=== PATIENT | male | born 1950 | race Caucasian/White ===

== ENCOUNTER 2018-04-15 07:52 | Outpatient (CLI) | payer MEDICARE, BC ==
[~2018-04-15] VITALS: Ht 182.9 cm; Wt 136.4 kg
--- NOTE | ~2018-04-15 | HEMODYNAMI ---
PATIENT:JEAN AYALA MEDICAL RECORD: [id number] : 54 LOCATION:[facility] ADMISSION DATE: 04/15/18 Generatedon:04/15/201810:32 Patient name: JEAN AYALA Patient #: [id number] SSN: [id number] : 1950 Date of study: 04/15/2018 Page: Of Hemodynamic Procedure Report Patient Data Patient Demographics Procedure consent was obtained First Name: JEAN Gender: Male Last Name: JAMIE : 1950 Middle Initial: KORIN Age: 67 year(s) Patient #: [id number] Race: SSN: [id number] Additional ID: [id number] Contact details Address: [place] [address] State: [place] City: [place] Zip code: [address] Past Medical History History of disease Date Diagnosis Comments CAD Allergies Allergen Reaction Date Comments Reported Other allergy 10/25/2015 PREDNISONE Admission Admission Data Admission Date: 04/15/2018 Admission Time: 7:52 Procedure Procedure Types Cath Procedure Diagnostic Procedure LHC LHC w/Coronaries FFR/IVUS Intra-Coronary IVUS Initial Sedation Charges Moderate Sedation up to 15 minutes PCI Procedure Coronary Stent Coronary Stent Initial Procedure Description Procedure Date Procedure Date: 04/15/2018 Procedure Start Time: 10:10 Procedure End Time: 10:29 Procedure Staff Name Function German Granger MD Performing Physician Dede Branch RT Monitor Naseem Davenport RT Scrub Michel Bautista RN Nurse Procedure Data Cath Procedure Fluoroscopy Diagnostic fluoroscopy Total fluoroscopy Time: 5.3 time: 5.3 min min Diagnostic fluoroscopy Total fluoroscopy dose: dose: 1530 mGy 1530 mGy Contrast Material Contrast Material Type Amount (ml) Isovue 300 90 Entry Location Entry Primary Successful Side Size Upsize Upsize Entry Closure Lakhani ccessful Closure Location (Fr) 1 (Fr) 2 (Fr) Remarks Device Remarks Radial Right 6 Fr Mechanical artery Short Compression Estimated blood loss: 5 ml Diagnostic catheters Device Type Used For End Catheter Placement DIAGNOSTIC Elwell 110cm 5 Multi-vessel Fr catheter ([id number]) Angiography Procedure Complications No complications Procedure Medications Medication Administration Route Dosage Oxygen etCO2 Nasal cannula 2 l/min Heparin Flush Bag added to field 2 bags (1000units/500ml NS) 0.9% NaCl I.V. 100 ml/hr Radial Cocktail added to field 1 syringe (Verapomil 2mg/Nitro 400mcg/Heparin 1500units) Fentanyl I.V. 50 mcg Versed I.V. 1 mg Radial Cocktail added to field 1 syringe (Verapomil 2mg/Nitro 400mcg/Heparin 1500units) Fentanyl I.V. 50 mcg Versed I.V. 1 mg Heparin Bolus I.V. 4000 units Hemodynamics Rest Heart Rate: 51 (bpm) Pressure Samples Time Site Value (mmHg) Purpose Heart Use Rate(bpm) 10:14 LV 30/27,20 Snapshot 58 Snapshots Pre Cath Intra NCS Post Cath Vital Signs Time Heart Resp SPO2 etCO2 NIBP (mmHg) Rhythm Pain Sedation Rate (ipm) (%) (mmHg) Status Level (bpm) 10:00:54 52 17 93 0 141/76(115) NSR 0 (11) 10(A) , No pain 10:05:13 49 17 95 37.6 140/78(112) NSR 0 (11) 10(A) , No pain 10:09:33 50 18 94 16.5 139/80(107) NSR 0 (11) 10(A) , No pain 10:13:55 59 16 96 24.8 118/68(95) NSR 0 (11) 9(A) , No pain 10:18:07 50 17 96 39.8 120/74(95) NSR 0 (11) 9(A) , No pain 10:23:10 44 16 94 37.6 125/69(101) NSR 0 (11) 9(A) , No pain 10:28:09 48 17 94 38.3 125/69(88) NSR 0 (11) 9(A) , No pain 10:31:23 45 9 95 39.1 124/71(103) NSR 0 (11) 9(A) , No pain Medications Time Medication Route Dose Verified Delivered Reason Not es Effectiveness by by 10:07:17 Oxygen etCO2 2 l/min German Pearson Per physician Nasal Elkin Bautista RN cannula 10:07:25 Heparin Flush added 2 bags German Michel used for Bag to Elkin Bautista RN procedure (1000units/500ml field NS) 10:07:34 0.9% NaCl I.V. 100 German Michel Per physician ml/hr Elkin Bautista RN 10:07:41 Radial Cocktail added 1 German Michel used for (Verapomil to syringe Elkin Bautista RN procedure 2mg/Nitro field 400mcg/Heparin 1500units) 10:09:16 Fentanyl I.V. 50 mcg German Ferreiray for sedation Elkin Bautista RN 10:09:22 Versed I.V. 1 mg German Michel for sedation Elkin Bautista RN 10:12:52 Radial Cocktail added 1 German Michel used for (Verapomil to syringe Elkin Bautista RN procedure 2mg/Nitro field 400mcg/Heparin 1500units) 10:12:57 Fentanyl I.V. 50 mcg German Pearson for sedation Elkin Bautista RN 10:13:01 Versed I.V. 1 mg German Ferreiray for sedation Elkin Bautista RN 10:24:29 Heparin Bolus I.V. 4000 German Michel for units Elkin Bautista RN anticoagulation Procedure Log Time Note 9:44:34 Diagnostic Cath Status : Elective 9:45:23 Naseem Davenport RT(R) sent for patient. Start room use. 9:45:24 Time tracking: Regular hours (M-F 7:00 - 5:00) 9:45:28 Plan of Care:Hemodynamics will remain stable., Cardiac rhythm will remain stable., Comfort level will be maintained., Respiratory function will remain adequate., Patient/ family verbilizes understanding of procedure., Procedure tolerated without complication., Recovers from procedure without complications.. 9:59:38 Patient received from Pre/Post Procedure Room to CCL 2 Alert and oriented. Tansferred to table in Supine position. 9:59:39 Warm blankets applied, and joleen hugger turned on for patient comfort. 9:59:40 Correct patient and procedure confirmed by team. 9:59:41 Signed procedure consent form obtained from patient. 9:59:42 ECG and BP/O2 sat monitors applied to patient. 9:59:44 Vital chart was started 9:59:45 Baseline sample Acquired. 9:59:47 Rhythm: sinus rhythm 9:59:49 Full Disclosure recording started 9:59:52 H&P Date Dictated: 04/15/2018 Within 30 days and on chart., H&P Addendum completed by physician on day of procedure. (MUST COMPLETE FOR ALL OUTPATIENTS). 9:59:54 Pre-procedure instructions explained to patient. 9:59:54 Pre-op teaching completed and patient verbalized understanding. 9:59:55 Family in waiting room. 9:59:56 Patient NPO since Midnight. 10:00:54 Is the patient allergic to Iodine/contrast media? No. 10:00:55 Was the patient premedicated? No 10:00:56 Is patient on blood thinner?Yes 10:00:58 ACC The patient was administered the following blood thiners within the last 24 hours: ACCPlavix 10:01:00 Patient diabetic? Yes. 10:01:01 If diabetic: On Metformin? Yes 10:01:05 If on Metformin: Last Dose? 04/13/2018 10:01:09 Previous problem with sedation/anesthesia? No ? 10:01:10 Snore? Yes 10:01:11 Sleep apnea? No 10:01:12 Deviated septum? No 10:01:13 Opens mouth fully? Yes 10:01:13 Sticks out tongue? Yes 10:01:15 Airway obstruction? No ? 10:01:17 Dentures? No ? 10:01:20 Pre procedure: right dorsailis pedis pulse 2+ Normal; easily identifiable; not easily obliterated 10:01:23 Pre procedure: left dorsailis pedis pulse 2+ Normal; easily identifiable; not easily obliterated 10:01:25 Patient pain scale 0/10 ?. 10:01:30 IV patent on arrival in left forearm with 0.9% NaCl at [facility]. 10:01:32 Lab results completed and on chart. 10:01:36 Right Radial & Right Groin area was prepped with chlora-prep and draped in sterile fashion 10:01:36 Alarms reviewed by R. N. 10:01:37 Sharps counted by scrub and verified by R.N. 10:01:39 Physician arrived 10:01:39 --------ALL STOP TIME OUT------ 10:01:39 Final Timeout: patient, procedure, and site verified with staff and physician. All members of the team are in agreement. 10:01:41 Right Radial & Right Groin site verified by team. 10:01:44 Physical assessment completed. ASA score P 2 - A patient with mild systemic disease as per German Granger MD. 10:01:47 Sedation plan: IV Moderate Sedation Medication:Versed, Fentanyl 10:01:50 Use device set Radial Dx or PCI 10:01:51 ACIST Syringe (27499) opened to sterile field. 10:01:51 Medline Cath Pack ([id number]) opened to sterile field. 10:01:52 Bag Decanter (2002S) opened to sterile field. 10:01:52 DIAGNOSTIC WIRE .035 260cm J wire (934986) opened to sterile field. 10:01:52 ACIST Hand Control (20893) opened to sterile field. 10:01:53 ACIST Manifold (42678) opened to sterile field. 10:01:53 Tegaderm 4 x 4 (1626W) opened to sterile field. 10:01:54 MBrace Wrist Support ([id number]) opened to sterile field. 10:01:55 SHEATH 6Fr Prelude Radial ([id number]) opened to sterile field. 10:07:17 Oxygen 2 l/min etCO2 Nasal cannula was administered by Michel Bautista RN; Per physician; 10:07:25 Heparin Flush Bag (1000units/500ml NS) 2 bags added to field was administered by Michel Bautista RN; used for procedure; 10:07:26 Zero performed for pressure channel P1 10:07:34 0.9% NaCl 100 ml/hr I.V. was administered by Michel Bautista RN; Per physician; 10:07:41 Radial Cocktail (Verapomil 2mg/Nitro 400mcg/Heparin 1500units) 1 syringe added to field was administered by Michel Bautista RN; used for procedure; 10:09:16 Fentanyl 50 mcg I.V. was administered by Michel Bautista RN; for sedation; 10:09:22 Versed 1 mg I.V. was administered by Michel Bautista RN; for sedation; 10:10:42 Procedure started. 10:10:51 Local anesthetic to right radial artery with Lidocaine 2% by German Granger MD.INITIAL ACCESS ONLY 10:10:59 A 6 Fr Short sheath was inserted into the Right Radial artery 10:12:05 A DIAGNOSTIC Elwell 110cm 5 Fr catheter (288207) was advanced over the wire and used for Multi-vessel Angiography. 10:12:52 Radial Cocktail (Verapomil 2mg/Nitro 400mcg/Heparin 1500units) 1 syringe added to field was administered by Michel Bautista RN; used for procedure; 10:12:57 Fentanyl 50 mcg I.V. was administered by Michel Bautista RN; for sedation; 10:13:01 Versed 1 mg I.V. was administered by Michel Bautista RN; for sedation; 10:14:24 LV hemodynamics recorded. 10:14:25 LV gram done using RAMIREZ 10:14:27 Injector settings: Ml/sec: 5, Volume: 15, 10:14:33 EF : 55 % 10:14:51 LCA angiography performed. 10:14:54 Injector settings: Ml/sec: 3, Volume: 6, 10:15:53 RCA angiography performed. 10:15:56 Injector settings: Ml/sec: 3, Volume: 6, 10:16:36 Catheter removed. 10:16:37 Proceeding to intervention. 10:17:05 CHOICE PT Extra Support 182cm wire ([id number]) opened to sterile field. 10:17:05 INFLATOR Merit BasixCompak (MW2433) opened to sterile field. 10:17:37 [employer] [place] Eagleye IVUS Catheter (89557T) opened to sterile field. 10:18:08 GUIDE 6FR EBU 3.5 catheter (AQ0FSO49) opened to sterile field. 10:18:31 6 Fr ebu 3.5 guide catheter was inserted over the wire 10:18:35 choice pt wire advanced. 10:18:36 Wire advanced across lesion. 10:18:42 IVUS catheter advanced over wire. 10:21:50 IVUS pass to LAD lesion performed. 10:21:51 IVUS catheter removed over wire. 10:24:10 Wire removed. 10:24:20 CHOICE PT Extra Support J 300cm guide wire (8877540G5) opened to sterile field. 10:24:29 Heparin Bolus 4000 units I.V. was administered by Michel Bautista RN; for anticoagulation; 10::44 choice pt wire advanced. 10:24:45 Wire advanced across lesion. 10:25:10 Place stent Inflation Number: 1 A MARGOTH OTW 2.5 x 22 stent ([id number]) was prepped and advanced across the Mid LAD. The stent was deployed at 21 IVANIA for 0:10 (min:sec). 10:25:26 Inflation number: 2 The stent balloon was then re-inflated across the Mid LAD to 21 IVANIA for 0:10 (min:sec). 10:25:41 Inflation number: 3 The stent balloon was then re-inflated across the Mid LAD to 21 IVANIA for 0:10 (min:sec). 10:26:20 Stent catheter was removed intact over wire. 10::21 Wire removed. 10:26:22 Guide catheter removed. 10:26:27 TR BAND Large (EOS31REH) opened to sterile field. 10:27:24 Sheath removed intact; hemostasis achieved with Mechanical Compression to the Right Radial artery. 10:27:25 Procedure ended.(Physican Out) 10:28:01 Fluoroscopy time 05.30 minutes. 10:28:05 Flurop Dose total: 1530 10:28:05 Fluoroscopy dose: 1530 mGy 10:28:13 Contrast amount:Isovue 300 90ml. 10:28:14 Sharps counted by scrub and verified by R.N. 10:28:16 TR band inflated with 9cc of air. 10:28:18 Insertion/operative site no bleeding no hematoma. 10:28:21 Post right radial artery:stable 10:28:23 Post Procedure Pulses reassessed and unchanged 10:28:26 Post procedure rhythm: unchanged. 10:28:28 Estimated blood loss: 5 ml 10:28:30 Post procedure instruction explained to patient.Patient verbalizes understanding. 10:28:31 Patient needs reinforcement of post procedure teaching. 10:28:58 Procedure type changed to Cath procedure, Diagnostic procedure, LHC, LHC w/Coronaries, FFR/IVUS, Intra-Coronary IVUS Initial, Sedation Charges, Moderate Sedation up to 15 minutes, PCI procedure, Coronary Stent, Coronary Stent Initial 10:29:10 Procedure and supply charges have been captured, reviewed, submitted and are correct. 10:29:14 Procedure Complication : No complications 10:29:17 Vital chart was stopped 10:: See physician's report for complete and final results. 10::19 Report given to Pre/Post Procedure Room. 10:: Patient transfered to Pre/Post Procedure Room with Stretcher. 10::24 Procedure ended. :: Full Disclosure recording stopped 10::31 ACC-PCI Only Patient was given prescriptions, or instructed by German Granger MD to start/continue the following medications upon discharge: Plavix 10::33 End room use (Document Last) Intervention Summary Intervention Notes Time ActionType Lesion and Equipment Action# Pressure Duration Attributes Used 10:25:10 Place stent Mid LAD MARGOTH OTW 2.5 1 21 00:10 x 22 stent ([id number]) 10:25:26 Reinflate Mid LAD MARGOTH OTW 2.5 2 21 00:10 stent x 22 stent balloon ([id number]) 10:25:41 Reinflate Mid LAD MARGOTH OTW 2.5 3 21 00:10 stent x 22 stent balloon ([id number]) Device Usage Item Name Manufacture Quantity Catalog Number Hospital Part Current M inimal Lot# / Charge Number Stock Stock Serial# Code ACIST Syringe Acist 1 06472 564462 402759 899284 2 0 (80570) Medical Systems Inc Medline Cath Cardinal 1 [id number] 148095 03391 521599 5 [facility] ([id number]) Bag Decanter Microtek 1 2001S 938980 78966 033070 5 (2001S) Medical Inc. DIAGNOSTIC WIRE St Wes 1 898791 140779 733315 226236 3 0 .035 260cm J wire (036174) ACIST Hand Acist 1 88999 149059 799983 210401 5 Control (15790) [employer] Inc ACIST Manifold Acist 1 00071 811530 587435 593074 5 (28862) [employer] Systems Inc Tegaderm 4 x 4 3M 1 1626W 839598 597314 489166 5 (1626W) MBrace Wrist Advanced 1 140-0250-00 097121 13625 004896 5 Support Vascular ([id number]) Dynamics SHEATH 6Fr Merit 1 [id number] 369219 221844 337810 5 Prelude Radial Medical ([id number]) DIAGNOSTIC Terumo 1 40-8713 350154 242717 549117 5 [place] 110cm 5 Fr catheter (287382) CHOICE PT Extra Fenwick 1 [id number] 978012 637315 234153 5 Support 182cm Scientific wire (2612745H3) INFLATOR Merit Merit 1 UK4423 253341 869220 785892 1 5 [facility] (ED1814) [employer] 1 51436V 092642 736466 169256 8 [place] Eagleye IVUS Catheter (82776T) GUIDE 6FR EBU Medtronic 1 [id number] 464848 42238 717198 3 3.5 catheter ([id number]) CHOICE PT Extra Fenwick 1 [id number] 417414 474897 874156 5 Support J 300cm Scientific guide wire ([id number]) MARGOTH OTW 2.5 x Medtronic 1 [id number] 619394 74394 464128 5 [id number] 22 stent ([id number]) TR BAND Large Terumo 1 [id number] 260113 123806 778261 4 0 ([id number]) Signature Audit [place] Stage Time Signature Unsigned Intra-Procedure 04/15/2018 Dede Branch 10:32:43 AM RT(R) Signatures Monitor : Dede Branch RT Signature : Date : Time : [facility] [address] [place] [address]
--- NOTE | ~2018-04-15 | OP ---
PATIENT NAME: JEAN AYALA MEDICAL RECORD: [id number] :54 LOCATION:D[facility] ADMISSION DATE: SURGEON: NAI FULTON MD DATE OF OPERATION: 04/15/2018 PROCEDURES: 1. PTCA stent LAD. 2. Left heart catheterization. 3. Selective coronary angiography. 4. Left ventriculogram. 5. Intravascular ultrasound. INDICATION: Angina and coronary artery disease. PROCEDURE IN DETAIL: After informed consent was obtained and after detailed description of risks, benefits as well as alternative therapies, the patient elected to proceed with angiogram and angioplasty. The right radial area was prepped and draped in normal sterile fashion. Right radial artery was cannulated via modified Seldinger technique with placement of 6-Mexican sheath. All catheters exchanged through this sheath. FINDINGS: The left ventriculogram was performed in standard 30-degree RAMIREZ view, reveals good cardiac wall motion throughout all segments. Overall ejection fraction estimated 60%. SELECTIVE CORONARY ANGIOGRAPHY: 1. Left main is with no significant angiographic disease. 2. Left anterior descending has a previously placed stent with 76% in-stent restenosis confirmed by intravascular ultrasound. 3. Left circumflex has moderate irregularities, but no flow-limiting stenosis. 4. Right coronary artery has moderate irregularities, but no flow-limiting stenosis. SEPTIC TANK SERVICE TECHNICIAN STENT OF THE LAD: The stent used was a 2.5 x 22 mm [place] taken to 21 atmospheres. Result was 0% residual stenosis. OVERALL IMPRESSION: Successful percutaneous transluminal coronary angioplasty stent of the left anterior descending going from 76% initial stenosis confirmed by intravascular ultrasound to 0% residual. TRANSINT:[id number] Voice Confirmation ID: [id number] DOCUMENT ID: [id number] NAI FULTON MD at 1752 CC: [id number] DICTATION DATE: 04/15/18 1033 STAMP PAD MAKER: 04/15/18 1241 DEP CLI 04/15/18 [place] [id number] [place] [id number]
[~2018-04-15 07:52] MED LIST: BABY ASPIRIN81 MG PO; CARDIZEM CD180 MG PO; CATAPRES0.2 MG PO; EFFIENT10 MG PO; GLIPIZIDE10 MG; GLUCOPHAGE1000 MG PO; HYDROCHLOROTHIA25 MG PO; LANTUS INSULIN10 ML SC; LASIX40 MG OR; NAPROSYN500 MG PO; PLAVIX75 MG PO; PRAVACHOL20 MG PO; ZIAC 10/6.25 MG1 TAB
[2018-04-15 08:18] VITALS: BP 123/77; Ht 182.9 cm; Wt 136.4 kg
[2018-04-15 08:38] LABS: BASOPHILS 0.9 % (0-2); EOSINOPHILS 3.1 % (0-7); HEMATOCRIT 40.5 % (42.0-54.0); HEMOGLOBIN 13.7 g/dL (13.5-17.5); LYMPHOCYTES 26.4 % (15-50); MCH 29.6 pg (26.0-34.0); MCHC 33.8 g/dL (31.0-37.0); MCV 87.5 fL (80.0-100.0); MEAN PLATELET VOLUME 10.7 fL (7.4-10.4); MONOCYTES 8.7 % (2-11); NEUTROPHILS 60.9 % (40-80); PLATELET COUNT 177 10x3/uL (130-400); RBC 4.63 10x6/uL (4.20-6.10); RDW 12.6 % (11.5-14.5); WBC 5.9 10x3/uL (4.8-10.8)
[2018-04-15 08:47] LABS: CALC OSMOLALITY 288 mosm/kg (275-300); CALCIUM 8.1 mg/dL (8.5-10.1); CARBON DIOXIDE 30.2 mmol/L (21.0-32.0); CHLORIDE - SERUM 102 mmol/L (98-107); GLUCOSE 255 mg/dL (74-106); POTASSIUM - SERUM 4.4 mmol/L (3.5-5.1); SODIUM 140 mmol/L (136-145); UREA NITROGEN 16 mg/dL (7-18); eGFR NON AFRICAN AMERICAN 80 mL/min (90-120)
== END 2018-04-15 14:56 ==
LOC: D.CATH 07:52
PROVIDERS: Internal Medicine Interventional Cardiology
DX: I25.119 Atherosclerotic heart disease of native coronary artery with unspecified angina pectoris (principal); T82.855A Stenosis of coronary artery stent, initial encounter; Z01.812 Encounter for preprocedural laboratory examination
CPT/HCPCS: 92978; 93458; C9600

== ENCOUNTER → 2018-08-01 16:34 | Outpatient (CLI) | payer MEDICARE, BC ==
[2018-04-15 08:18] VITALS: BMI 40.8
== END | disposition home or self-care (01) ==
LOC: D.CT 16:30
DX: R91.8 Other nonspecific abnormal finding of lung field (principal)

== ENCOUNTER → 2018-11-13 12:54 | Outpatient (CLI) | payer MEDICARE, BC ==
[2018-04-15 08:18] VITALS: BMI 40.8
--- NOTE | 2018-11-15 14:58 | EC ---
PATIENT:JEAN AYALA DATE OF SERVICE: 11/13/18 SEX: M MEDICAL RECORD: [id number] DATE OF : 54 [facility] AGE OF PATIENT: 68 ADMISSION DATE: 11/13/18 REFERRING PHYSICIAN: INTERPRETING PHYSICIAN: NAI GRANGER MD ECHOCARDIOGRAM REPORT ECHO CHARGES 4 ECHO COMPLETE Date: 11/13/18 CLINICAL DIAGNOSIS: HTN/EDEMA/MR H/O CAD ECHOCARDIOGRAPHIC MEASUREMENTS (adult normal given) AC root (d.<3.7cm) 4.0 cm LV Septum d (<1.2 cm> 1.4 cm Valve Excursion 2.2 cm LV Septum (systole) 1.8 cm Left Atria (s.<4.0cm> 5.4 cm LVPW d(<1.2cm) 1.3 cm RV (d.<2.3cm) 2.9 cm LVPW (sytole) 2.1 cm LV diastole(<5.6CM) 6.0 cm MV E-F(>70mm/sec) cm LV systole 4.0 cm LVOT Diameter 2.3 cm MV exc.(>10mm) cm Est.ejection fraction (50-75%) % DOPPLER: LVIT cm/sec A 57.0 cm/sec E 90.0 cm/sec LA cm/sec RVSP 17.0 mmHg LVOT 138 cm/sec AOP1/2T m/s Asc. Ao 126 cm/sec RVOT 70.0 cm/sec RA cm/sec PA 98.0 cm/sec AV Gradient Peak 6.4 mmHg AV Mean 3.3 mmHg AV Area 4.9 cm MV Gradient Peak 4.6 mmHg MV Mean 1.6 mmHg MV Area cm COMMENTS: OP - HC Block Cuber: Liss NOLASCO TU[place] Equipment Operator: 1 Dr. Granger TAPE# PACS Pericardial Effusion N DATE OF SERVICE: 11/13/2018 FINDINGS: 1. Left ventricular chamber size is mildly dilated. Left ventricular systolic function is preserved. Overall ejection fraction estimated at 60%. 2. Left atrium is enlarged at 5.4 cm. Right atrium and right ventricular chamber sizes are within normal limits. 3. Valvular structures have normal structure and function. 4. Doppler interrogation reveals no significant valvular insufficiency or stenosis. Pulmonary systolic pressure is normal, estimated at 17 mmHg. ECHOCARDIOGRAM REPORT [id number] JEAN AYALA 5. No evidence of pericardial effusion or left ventricular thrombus. TRANSINT:[id number] Voice Confirmation ID: [id number] DOCUMENT ID: [id number] NAI GRANGER MD at 1458 CC: [id number] DICTATION DATE: 11/15/18 0909 CARE MANAGER: 11/15/18 1001 DEP CLI 11/13/18 [place] [id number] [place] [address]
== END | disposition home or self-care (01) ==
LOC: D.HCCARDIO 12:54
PROVIDERS: ATTEND Internal Medicine Interventional Cardiology
DX: I34.0 Nonrheumatic mitral (valve) insufficiency (principal)

== ENCOUNTER 2019-01-03 05:05 | Day surgery (SDC) | payer MEDICARE, BC ==
[2019-01-02 11:45] LABS: HEMATOCRIT 41.4 % (42.0-54.0); HEMOGLOBIN 14.1 g/dL (13.5-17.5); MCH 29.3 pg (26.0-34.0); MCHC 34.1 g/dL (31.0-37.0); MCV 86.1 fL (80.0-100.0); MEAN PLATELET VOLUME 10.2 fL (7.4-10.4); RBC 4.81 10x6/uL (4.20-6.10); RDW 12.3 % (11.5-14.5); WBC 7.6 10x3/uL (4.8-10.8)
[2019-01-02 11:51] LABS: CALCIUM 9.1 mg/dL (8.5-10.1); CARBON DIOXIDE 26.3 mmol/L (21.0-32.0); CREATININE - SERUM 1.1 mg/dL (0.6-1.3); POTASSIUM - SERUM 4.3 mmol/L (3.5-5.1)
[~2019-01-03] VITALS: Ht 182.9 cm; Wt 136.1 kg
[~2019-01-03 05:05] MED LIST changes: +CARDURA4 MG PO
[2019-01-03] MEDS ORDERED: LISINOPRIL20 MG (06:05)
[2019-01-03 06:13] VITALS: BP 140/65; Ht 182.9 cm; Wt 136.1 kg
--- NOTE | 2019-01-03 07:31 | NUR ---
PREPPED ARM FROM SHUOLDER TO FINGERS CIRCUMFERENTIALLY PATIENT HAS MULTIPLE PLACES OF PSORIASIS THROUGHOUT BODY
[2019-01-03] MEDS ORDERED: PERCOCET 7.5/321 TAB PO (08:13)
--- NOTE | 2019-01-03 11:26 | OP ---
PATIENT NAME: JEAN AYALA MEDICAL RECORD: [id number] :54 LOCATION:[facility] ADMISSION DATE: SURGEON: BELLO ANDREA DO DATE OF OPERATION: 01/03/2019 PROCEDURE PERFORMED: Left shoulder arthroscopy with subacromial decompression, distal clavicle excision, labral debridement, biceps tenodesis. PREOPERATIVE DIAGNOSES: Left shoulder superior labrum anterior and posterior tear, subacromial impingement and acromioclavicular joint arthritis. POSTOPERATIVE DIAGNOSES: Left shoulder superior labrum anterior and posterior tear, subacromial impingement and acromioclavicular joint arthritis. INDICATIONS: Mr. Ayala is a 68-year-old diabetic male who has had left shoulder pain for quite some time. He has been tired dealing with it. He has had pain with overhead lifting and reaching backwards. He tried all manner of nonoperative treatment and had an MRI, which showed AC joint arthritis, possible SLAP tear and possible partial rotator cuff tear. The patient was informed that we would go in there and clean up the impingement part of the distal clavicle, excision for his AC joint arthritis and look at his rotator cuff directly. If it was torn more than 50%, I told him I would fix it and I would also do biceps tenodesis if there was a SLAP tear. He was okay with that as were the risks of infection, bleeding, damage to nerves and vessels, need for further surgery, blood clots, and even and he was worried with his increased risk for infection due to his diabetes and that he would have to control his sugars well and physical therapy; risk for adhesive capsulitis was increased due to his diabetes as well and he would have to do physical therapy right away. He is okay with that and signed the consent. SURGEON: Bello Andrea DO DESCRIPTION OF PROCEDURE: The patient was taken to the operative suite. After given a block by anesthesia, laid in the right lateral decubitus position with the left shoulder up. The axillary roll was placed and the patient was positioned with the beanbag and secured. The left shoulder was then prepped and draped in sterile fashion. Timeout was performed. Everyone was in agreeance with the correct side, site, patient and procedure. He was given 900 mg of clindamycin preoperatively. The left shoulder was ready and then the 18-gauge spinal needle was used to the posterior portal to inflate the shoulder joint itself with 60 mL of normal saline. Once this was inflated, an 11-blade scalpel was used to establish the portal. The trocar was then entered into the shoulder joint. The camera was then entered and the SLAP tear was seen right away with fraying of the labrum at the superior portion of it. The anterior portal was then established with an 18-gauge spinal needle and 11-blade scalpel with trocar to make the portal bigger and then a burner was brought in through the anterior portal. The biceps was then tenotomized. The rest of the shoulder was inspected. The cartilage on the humerus looked good. There was a small defect in the glenoid, right at the center. The supraspinatus and infraspinatus did not appear to have any full-thickness tears and the subscapularis was in good condition as well on the anterior humerus. Inferior gutter of the shoulder joint was inspected as well. No loose bodies are seen in it. The shoulder scope was then removed and put into the subacromial space. There was a significant amount of bursa there. The lateral portal was then established with an 18-guage spinal needle and 11-blade scalpel and trocar. A burner was then OPERATIVE REPORT [id number] JEAN AYALA brought in and the acromion was cleaned off and a shaver was brought in to do the bursectomy. The rotator cuff was inspected. No tears were seen on the bursal side of the rotator cuff either. Then, the subacromial decompression was done. The distal lateral acromion was removed and smoothed out. Then, the AC joint was opened up and the distal clavicle was removed opening the AC joint up to 7-mm. Once that was performed, the rotator cuff was further inspected and more bursa was taken out with a shaver and no tears again were seen in the rotator cuff. Scope was then removed from the shoulder and attention was drawn to the anterior humerus where the biceps tenodesis would be performed. A small incision was made on the anterior humerus. Dissection was made down to the long head of the biceps tendon. This was removed from the wound and whipstitched and then a single button unicortical was placed on the anterior humerus and the biceps tendon was cinched down to it and tied, and then a free needle was used to go through the tendon and this tied down as well, doubly securing it to the anterior humerus. The excess tendon and sutures were cut at that time. The site was thoroughly irrigated and then closed with 2-0 Vicryl in an inverted interrupted fashion, 4-0 Monocryl ran on the skin. The portal sites were then closed with 4-0 Monocryl in an inverted interrupted fashion and Dermabond glue was placed on all the incisions. The patient was dressed in a regular fashion and placed in a sling, awakened and taken to recovery in stable condition. BLOOD LOSS: Minimal. COMPLICATIONS: None. TRANSINT:[id number] Voice Confirmation ID: [id number] DOCUMENT ID: [id number] BELLO ANDREA DO at 1126 CC: CHARISMA ZELAYA [id number] DICTATION DATE: 01/03/19 0821 YOGA TEACHER: 01/03/19 1107 [facility] [place] [place] 01/03/19 [address] [place] [address]
== END 2019-01-03 10:35 | disposition home or self-care (01) ==
LOC: D.OPS 05:05 → D.PAN 08:20 → D.OPS 08:20 → D.PAN 08:30 → D.OPS 08:30
PROVIDERS: Anesthesiology; ATTEND Orthopaedic Surgery
DX: S43.432A Superior glenoid labrum lesion of left shoulder, initial encounter (principal); M75.42 Impingement syndrome of left shoulder; M13.812 Other specified arthritis, left shoulder; Z01.812 Encounter for preprocedural laboratory examination; X58.XXXA Exposure to other specified factors, initial encounter

== ENCOUNTER → 2019-11-06 08:57 | Outpatient (CLI) | payer MEDICARE, BC ==
[2019-01-03 06:13] VITALS: BMI 40.8
--- NOTE | ~2019-11-06 | ST ---
PATIENT:JEAN AYALA MEDICAL RECORD: [id number] SEX: M LOCATION:[facility] ORDER #: ADMISSION DATE: 11/06/19 AGE OF PATIENT: 69 REFERRING PHYSICIAN: INTERPRETING PHYSICIAN: NAI FULTON MD DATE OF SERVICE: 11/06/2019 PROCEDURE: Nuclear stress test. INDICATION: Angina, shortness of breath, hypertension and hyperlipidemia. TECHNIQUE: He was exercised on standard Lexiscan protocol with 33 mCi of sestamibi injected at peak stress, 11 mCi used previously for rest images. FINDINGS: Gated SPECT reveals a dilated cardiomyopathy, ejection fraction of 44%. SPECT imaging Cardiolite was used as myocardial perfusion agent. There is reversibility inferiorly. This includes basal, mid, apical, inferior segments. The degree of reversibility is severe. The amount of myocardium involved is moderate. There is reversibility laterally. The degree of reversibility is moderate. The amount of myocardium involved is moderate. There is reversibility anteriorly. The degree of reversibility is [id number]. The amount of myocardium involved is moderate. Between all defects, the amount of myocardium involved is very large. OVERALL IMPRESSION: This is a high risk significantly abnormal nuclear stress test, reversibility laterally, inferiorly, anteriorly and apically suggestive of hemodynamically significant multivessel coronary artery disease. TRANSINT:[id number] Voice Confirmation ID: [id number] DOCUMENT ID: [id number] NAI FULTON MD CC: CHARISMA ZELAYA [id number] DICTATION DATE: 11/07/19 1703 WEB PRESS JOGGER: 11/08/19 1149 DEP CLI 11/06/19 [id number] [place] [address]
--- NOTE | ~2019-11-06 | EC ---
PATIENT:JEAN AYALA DATE OF SERVICE: 11/06/19 SEX: M MEDICAL RECORD: [id number] DATE OF : 54 LOCATION:[facility] AGE OF PATIENT: 69 ADMISSION DATE: 11/06/19 REFERRING PHYSICIAN: INTERPRETING PHYSICIAN: NAI GRANGER MD ECHOCARDIOGRAM REPORT ECHO CHARGES 4 ECHO COMPLETE Date: 11/06/19 CLINICAL DIAGNOSIS: ANGINA/JANE/HTN H/O CAD ECHOCARDIOGRAPHIC MEASUREMENTS (adult normal given) AC root (d.<3.7cm) 3.9 cm LV Septum d (<1.2 cm> 1.5 cm Valve Excursion 2.2 cm LV Septum (systole) 2.5 cm Left Atria (s.<4.0cm> 4.7 cm LVPW d(<1.2cm) 1.3 cm RV (d.<2.3cm) 3.2 cm LVPW (sytole) 2.5 cm LV diastole(<5.6CM) 6.6 cm MV E-F(>70mm/sec) cm LV systole 3.2 cm LVOT Diameter 2.4 cm MV exc.(>10mm) cm Est.ejection fraction (50-75%) % DOPPLER: LVIT cm/sec A 100 cm/sec E 68.0 cm/sec LA cm/sec RVSP 34.0 mmHg LVOT 109 cm/sec AOP1/2T m/s Asc. Ao 158 cm/sec RVOT 79.0 cm/sec RA cm/sec PA 81.0 cm/sec AV Gradient Peak 10.0 mmHg AV Mean 5.7 mmHg AV Area 3.2 cm MV Gradient Peak 5.5 mmHg MV Mean 1.5 mmHg MV Area cm COMMENTS: OP - HC Adolescent Medicine Specialist: 1 CONSTANCE DODGE Entry Level Sales Associate: 1 Dr. Granger TAPE# PACS Pericardial Effusion N DATE OF SERVICE: ECHOCARDIOGRAM FINDINGS: 1. Left ventricular chamber size is within normal limits. Left ventricular systolic function is normal. Overall ejection fraction estimated at 55% to 60%. 2. Left atrium, right atrium, and right ventricle chamber sizes are mildly dilated. Left atrium measures 4.7 cm. 3. Valvular structures have normal structure and motion. ECHOCARDIOGRAM REPORT [id number] JEAN AYALA 4. Doppler interrogation reveals only trace to mild tricuspid regurgitation, no other valvular insufficiency or stenosis. 5. No evidence of pericardial effusion or left ventricular thrombus. TRANSINT:[id number] Voice Confirmation ID: [id number] DOCUMENT ID: [id number] NAI GRANGER MD CC: [id number] DICTATION DATE: 11/07/19 105 FILTER PRESS TENDER HEAD: 11/07/19 1350 DEP CLI 11/06/19 [facility] [address] [place] [address]
[~2019-11-06 08:57] MED LIST changes: +LISINOPRIL20 MG; +PERCOCET 7.5/321 TAB PO
== END | disposition home or self-care (01) ==
LOC: D.HCCECHO 08:57
PROVIDERS: ATTEND Internal Medicine Interventional Cardiology
DX: I25.119 Atherosclerotic heart disease of native coronary artery with unspecified angina pectoris (principal)

== ENCOUNTER 2019-11-15 08:22 | Inpatient (IN) | payer MEDICARE, BC ==
[~2019-11-15] VITALS: Ht 182.9 cm; Wt 136.4 kg
--- NOTE | ~2019-11-15 | HEMODYNAMI ---
PATIENT:JEAN AYALA MEDICAL RECORD: [id number] : 54 [facility] ADMISSION DATE: 11/16/19 Generatedon:11/17/20199:29 Patient name: JEAN AYALA Patient #: [id number] SSN: [id number] : 1950 Date of study: 11/17/2019 Page: Of Hemodynamic Procedure Report Patient Data Patient Demographics Procedure consent was obtained First Name: JEAN Gender: Male Last Name: JAMIE : 1950 [facility] Initial: KORIN Age: 69 year(s) Patient #: [id number] Race: SSN: [id number] Additional ID: [id number] Contact details Address: [address] [address] State: [place] City: [place] Zip code: [address] Past Medical History Performed procedures and imaging results Date Procedure Procedure Results Comments 11/06/2019 Stress testing Positive->Intermediate with SPECT MPI risk History of disease Date Diagnosis Comments CAD Allergies Allergen Reaction Date Comments Reported Other allergy 10/25/2015 PREDNISONE Other allergy 11/17/2019 PREDNISONE, LOSARTAN, HYDROCHLOROTHIAZIDE Admission Admission Data Admission Date: 11/16/2019 Admission Time: 17:24 Arrival Date: 11/17/2019 Arrival Time: 0:00 Admit Source: Other Insurance Payor: Medicare Room #: D.2119 [facility] #: [id number] Height (in.): 72 BSA: 2.53 (m2) Height (cm.): 182.88 BMI: 40.69 (kg/m2) Weight (lbs.): 300 Weight (kg.): 136.08 Lab Results Lab Result Date: 11/17/2019 Lab Result Time: 0:00 Biochemistry Name Units Result Min Max BUN mg/dl 16 --(---*)-- 7 18 Creatinine mg/dl 1.1 --(--*-)-- 0.6 1.3 eGFR ml/min 70.25819 *-(----)-- 90 120 NONAFRICAN CBC Name Units Result Min Max Hematocrit % 41.9 -*(----)-- 42 54 Hemoglobin g/dl 14.1 --(*---)-- 13.5 17.5 Procedure Procedure Types Cath Procedure Diagnostic Procedure [facility] w/Coronaries Sedation Charges Moderate Sedation up to 15 minutes Procedure Description Procedure Date Procedure Date: 11/17/2019 Procedure Start Time: 9:10 Procedure End Time: 9:28 Procedure Staff Name Function Preston Hickman MD Performing Physician Kasey Zeng RN Nurse Norma Meadows RT Supervising Producer Radha Dennis RT Scrub Una Araujo RT Monitor Indication Angina Procedure Data Cath Procedure Fluoroscopy Diagnostic fluoroscopy Total fluoroscopy Time: 2.8 time: 2.8 min min Diagnostic fluoroscopy Total fluoroscopy dose: dose: 1020 mGy 1020 mGy Contrast Material Contrast Material Type Amount (ml) Isovue 370 61 Entry Location Entry Primary Successful Side Size Upsize Upsize Entry Closure Lakhani ccessful Closure Location (Fr) 1 (Fr) 2 (Fr) Remarks Device Remarks Radial Right 6 Fr Mechanical artery Short Compression Estimated blood loss: 5 ml Diagnostic catheters Device Type Used For End Catheter Placement DIAGNOSTIC Bruno 110cm Procedure 5Fr catheter ([id number]) Procedure Complications No complications Procedure Medications Medication Administration Route Dosage 0.9% NaCl I.V. 100 ml/hr Oxygen etCO2 Nasal cannula 2 l/min Lidocaine 2% added to field 20 Heparin Flush Bag added to field 2 bags (1000units/500ml NS) Versed I.V. 2 mg Fentanyl I.V. 50 mcg Fentanyl I.V. 50 mcg Radial Cocktail added to field 1 syringe (Verapamil 2mg/Nitro 400mcg/Heparin 1500units) Hemodynamics Rest BSA: 2.53 (m2) O2 Consumption: Estimated: 292.03 (ml/min) O2 Consumption indexed : Estimated:115.43 (ml/min/m) Heart Rate: 68 (bpm) Pressure Samples Time Site Value (mmHg) Purpose Heart Use Rate(bpm) 9:18 LV 73/19,18 Snapshot 68 9:18 AO (73) Pullback 87 9:18 LV 112/-4,3 Pullback 87 Gradients Valve Time Site 1 Site Mean SEP/DFP Peak To Heart Use 2 (mmHg) (sec/min) Peak Rate (mmHg) (bpm) Aortic 9:18 LV AO 15 27 87 112/-4,3 (73) Calculations Valve P-P Mean Valve Index Valve Source Name Gradient Area Flow (cm2) Aortic 15 15 Snapshots Pre Cath Intra NCS Post Cath Vital Signs Time Heart Resp SPO2 etCO2 NIBP (mmHg) Rhythm Pain Sedation Rate (ipm) (%) (mmHg) Status Level (bpm) 8:57:55 61 13 97 40 177/89(134) NSR 0 (11) 10(A) , No pain 9:02:34 67 10 96 45.3 159/81(119) NSR 0 (11) 10(A) , No pain 9:07:02 61 14 97 49.1 161/84(149) NSR 0 (11) 10(A) , No pain 9:11:26 65 13 96 40 156/89(105) NSR 0 (11) 10(A) , No pain 9:15:46 73 11 96 32.4 130/78(92) NSR 0 (11) 9(A) , No pain 9:20:15 61 10 96 9 147/64(114) NSR 0 (11) 10(A) , No pain 9:25:14 82 12 90 42.3 Measuring NSR 0 (11) 10(A) , No pain 9:25:48 83 11 90 42.3 149/102(134) NSR 0 (11) 10(A) , No pain Medications Time Medication Route Dose Verified Delivered Reason Notes Ef fectiveness by by 8:56:33 0.9% NaCl I.V. 100 Preston Kasey used for ml/hr Vick Zeng hog pusher 8:56:40 Oxygen etCO2 2 l/min Preston Kasey Nasal Vick Zeng cannula RN 8:56:45 Lidocaine 2% added 20ml Preston Preston for local to vial Vick Hickman MD anesthetic field 8:56:49 Heparin Flush added 2 bags Preston Preston used for Bag to Vick Hickman MD procedure (1000units/500ml field NS) 8:57:39 Radial Cocktail added 1 Preston Kasey used for (Verapamil to syringe Vick Zeng procedure 2mg/Nitro field RN 400mcg/Heparin 1500units) 9:04:07 Versed I.V. 2 mg Preston Kasey for Vick Zeng sedation RN 9:04:18 Fentanyl I.V. 50 mcg Preston Kasey for Vick Zeng sedation RN 9:11:27 Fentanyl I.V. 50 mcg Preston Kasey for Vick Zeng sedation stitch separator Log Time Note 8:13:20 Informed consent obtained and on chart 8:13:31 H&P Date Dictated: 11/15/2019 ER History on chart.. 8:14:25 Procedure Status Urgent Heart Cath (IP). 8:14:26 Time tracking: Regular hours (M-F 7:00 - 5:00) 8:14:30 Plan of Care:Hemodynamics will remain stable., Cardiac rhythm will remain stable., Comfort level will be maintained., Respiratory function will remain adequate., Patient/ family verbilizes understanding of procedure., Procedure tolerated without complication., Recovers from procedure without complications.. 8:15:10 Patient allergic to Other allergyPREDNISONE, LOSARTAN, HYDROCHLOROTHIAZIDE 8:16:25 Lab Result : BUN 16 mg/dl 8:16:25 Lab Result : Creatinine 1.1 mg/dl 8:16:25 Lab Result : eGFR NONAFRICAN 70.78187 ml/min 8:16:25 Lab Result : Hemoglobin 14.1 g/dl 8:16:25 Lab Result : Hematocrit 41.9 % 8:17:42 Patient Weight : 300 lbs 8:17:52 Patient Height : 72 inches 8:24:00 Indication : Angina 8:41:21 Norma Meadows RT(R) sent for patient. Start room use. 8:44:07 Pre-procedure instructions explained to patient. 8:44:07 Pre-op teaching completed and patient verbalized understanding. 8:44:16 Alarms reviewed by R. N. 8:44:16 Sharps counted by scrub and verified by R.N. 8:44:20 Risk of Mortality: .1 8:44:23 Risk of blood transfusion: .1 8:44:25 Risk of YUNG: .4 8:44:30 Stress Test: yes; abnormal MULTIVESSEL 8:44:33 Lab results completed and on chart. 8:44:58 Arrival Date: 11/17/2019 12:00:00 AM 8:44:58 Admit Source: Other 8:45:37 Insurance Payor : Medicare 8:47:16 Patient received from Med II to CCL 1 Alert and oriented. Tansferred to table in Supine position. 8:47:18 Warm blankets applied, and joleen hugger turned on for patient comfort. 8:47:18 Correct patient and procedure confirmed by team. 8:47:19 ECG and BP/O2 sat monitors applied to patient. 8:47:23 Family unavailable. 8:47:25 Patient NPO since Midnight. 8:47:26 Is the patient allergic to Iodine/contrast media? No. 8:47:29 Was the patient premedicated? N/A 8:47:56 Is patient on blood thinner?No 8:47:59 Patient diabetic? Yes. 8:48:00 If diabetic: On Metformin? Yes 8:48:05 If on Metformin: Last Dose? 11/14/2019 8:48:07 ----Pre-sedation anethsthesia assessment.---- 8:48:11 Previous problem with sedation/anesthesia? No ? 8:48:21 Snore? Yes 8:48:22 Sleep apnea? Yes 8:48:24 Deviated septum? No 8:48:25 Opens mouth fully? Yes 8:48:26 Sticks out tongue? Yes 8:48:28 Airway obstruction? No . 8:48:32 Dentures? No ? 8:49:01 IV patent on arrival in left hand with 0.9% NaCl at [facility]. 8:49:05 Patient pain scale 0/10 ?. 8:49:15 Pre procedure: right dorsailis pedis pulse 2+ Normal; easily identifiable; not easily obliterated 8:49:18 Modified Tyrone's test Ulnar < 7 seconds 8:49:24 Right Radial & Right Groin area was prepped with chlora-prep and draped in sterile fashion 8:49:28 Use device set Radial Dx or PCI 8:56:25 Vital chart was started 8:56:33 0.9% NaCl 100 ml/hr I.V. was administered by Kasey Zeng RN; used for procedure; Verbal order read back and verified. 8:56:40 Oxygen 2 l/min etCO2 Nasal cannula was administered by Kasey Zeng RN; ; Verbal order read back and verified. 8:56:45 Lidocaine 2% 20ml vial added to field was administered by Preston Hickman MD; for local anesthetic; Verbal order read back and verified. 8:56:49 Heparin Flush Bag (1000units/500ml NS) 2 bags added to field was administered by Preston Hickman MD; used for procedure; Verbal order read back and verified. 8:57:39 Radial Cocktail (Verapamil 2mg/Nitro 400mcg/Heparin 1500units) 1 syringe added to field was administered by Kasey Zeng RN; used for procedure; Verbal order read back and verified. 8:57:50 ACIST Syringe (44328) opened to sterile field. 8:57:51 Medline Cath Pack ([id number]) opened to sterile field. 8:57:52 Bag Decanter (2002) opened to sterile field. 8:57:52 ACIST Hand Control (02791) opened to sterile field. 8:57:54 ACIST Manifold (24119) opened to sterile field. 8:57:55 MBrace Wrist Support ([id number]) opened to sterile field. 8:57:56 NEEDLE Cook 21G 4cm Radial (R39833) opened to sterile field. 8:57:58 SHEATH 6FR RAIN (3597933) opened to sterile field. 8:58:01 EMERALD Guide Wire (966-758) opened to sterile field. 9:03:40 --------ALL STOP TIME OUT------ 9:03:43 Final Timeout: patient, procedure, and site verified with staff and physician. All members of the team are in agreement. 9:03:45 Right Radial & Right Groin site verified by team. 9:03:47 Fire Safety Assessment: A--An alcohol-based skin anteseptic being used preoperatively., C--Open oxygen or nitrous oxide is being used., D--An ESU, laser, or fiber-optic light is being used. 9:03:51 Physical assessment completed. ASA score P 2 - A patient with mild systemic disease as per Preston Hickman MD. 9:03:54 2) 60-89 Mildly reduced kidney function, and other findings (as for stage 1) point to kidney disease. 9:03:57 Maximum allowable contrast dose (3.7 X eGFR X 0.75)197 ml. 9:03:59 Sedation plan: IV Moderate Sedation Medication:Versed, Fentanyl 9:04:07 Versed 2 mg I.V. was administered by Kasey Zeng RN; for sedation; Verbal order read back and verified. 9:04:18 Fentanyl 50 mcg I.V. was administered by Kasey Zeng RN; for sedation; Verbal order read back and verified. 9::41 Procedure started. 9:: Full Disclosure recording started 9:10:47 Local anesthetic to right radial artery with Lidocaine 2% by Preston Hickman MD.INITIAL ACCESS ONLY 9:11:27 Fentanyl 50 mcg I.V. was administered by Kasey Zeng RN; for sedation; Verbal order read back and verified. 9:13:57 A 6 Fr Short sheath was inserted into the Right Radial artery 9:15:19 A DIAGNOSTIC CoNarrative 110cm 5Fr catheter ([id number]) was advanced over the wire and used for Procedure. 9:17:20 LV gram done using RAMIREZ 9:18:13 LV hemodynamics recorded. 9:18:16 Injector settings: Ml/sec: 5, Volume: 15, 9:18:33 EF : 50 % 9:19:08 RCA angiography performed. 9:19:11 Injector settings: Ml/sec: 3, Volume: 6, 9:19:45 LCA angiography performed. 9:19:53 Injector settings: Ml/sec: 3, Volume: 6, 9:20:15 ACCDominant side:Co-Dominant 9:21:20 Injector settings: Ml/sec: 4, Volume: 8, 9:21:27 NEPALI CRANIAL DONE. 9:21:42 Catheter removed. 9:21:48 ZEPHYR LG TR BAND (930307) opened to sterile field. 9:22:01 Sheath removed intact; hemostasis achieved with Mechanical Compression to the Right Radial artery. 9:22:31 Procedure ended.(Physican Out) 9::41 Fluoroscopy time 02.80 minutes. 9:22:45 Fluoroscopy dose: 1020 mGy 9:22:45 Flurop Dose total: 1020 9:22:51 Dose Area Product 62141 mGy/cm. 9:22:55 Contrast amount:Isovue 370 61ml. 9:22:58 Maximum allowable dose exceeded? No. 9::59 Sharps counted by scrub and verified by R.N. 9:23:01 [place] band inflated with 11cc of air. 9:23:07 Post Procedure Pulses reassessed and unchanged 9:23:12 Post-procedure physical assessment completed. ASA score P 2 - A patient with mild systemic disease as per Preston Hickman MD. 9:23:15 Post procedure rhythm: unchanged. 9:23:18 Estimated blood loss: 5 ml 9:23:20 Post procedure instruction explained to patient.Patient verbalizes understanding. 9:23:20 Patient needs reinforcement of post procedure teaching. 9:23:36 Procedure type changed to Cath procedure, Diagnostic procedure, LHC, C w/Coronaries, Sedation Charges, Moderate Sedation up to 15 minutes 9:24:21 Procedure and supply charges have been captured, reviewed, submitted and are correct. 9:24:25 Procedure Complication : No complications 9:24:29 LHC Findings: mild to moderate CAD (<70%) 9:24:30 Operative report dictated upon procedure completion. 9:24:31 See physician's report for complete and final results. 9:24:35 Report given to [facility]. 9:25:58 Patient transfered to [facility] with Bed. 9:26:03 Vital chart was stopped 9:28:00 Procedure ended. 9:28:00 Full Disclosure recording stopped 9:28:07 End room use (Document Last) 9:28:17 End room use (Document Last) 9:28:36 End room use (Document Last) Device Usage Item Name Manufacture Quantity Catalog Hospital Part Current Minima l Lot# / Number Charge Number Stock Stock Serial# Code ACIST Acist 1 92079 073803 [id number] [id number] 20 Syringe Medical (33407) Systems Inc Medline Medline 1 [id number] 88295 112812 5 Cath Pack ([id number]) Bag Microtek 1 627056 91411 139846 5 Decanter Medical Inc. () ACIST Hand Acist 1 44468 424825 591595 437897 5 Control Medical (88372) Systems Inc ACIST Acist 1 09697 977279 765611 512023 5 Manifold Medical (39133) Systems Inc MBrace Advanced 1 140-0250-00 581402 13263 997353 5 Wrist Vascular Support Dynamics ([id number]) NEEDLE upad Medical 1 L94860 601118 843894 824677 5 21G 4cm Radial (U72925) SHEATH 6FR Cardinal 1 3771362 714931 4616565 181376 5 RAIN Health (1222705) EMERALD Cardinal 1 764-081 861024 218760 559361 5 Guide Wire Health (734-777) DIAGNOSTIC Terumo 1 40-8565 436147 876391 067987 5 Bruno 110cm 5Fr catheter (277830) ZEPHYR Cardinal 1 247741 767500 5878734 171850 5 REGULAR TR Health BAND (369089) Signature Audit [place] Stage Time Signature Unsigned Intra-Procedure 11/17/2019 Una Araujo 9:28:17 AM RT(R) Intra-Procedure 11/17/2019 Kasey Zeng 9:28:36 AM RN Intra-Procedure 11/17/2019 Preston Hickman MD 9:29:19 AM [address] [place] [address]
[~2019-11-15 08:22] MED LIST changes: -LISINOPRIL20 MG; +LISINOPRIL20 MG PO
[2019-11-15 08:53] VITALS: BP 160/55
--- NOTE | 2019-11-15 09:38 | NUR ---
CONT. TO WAIT ON LABS. TECH PLACED IN TUBE SYSTEM BUT DID NOT SEND.
[2019-11-15 09:40] LABS: BASOPHILS 1.1 % (0-2); CALC OSMOLALITY 284 mosm/kg (275-300); CHLORIDE - SERUM 104 mmol/L (98-107); CREATININE - SERUM 1.1 mg/dL (0.6-1.3); EOSINOPHILS 3.6 % (0-7); GLUCOSE 146 mg/dL (74-106); HEMATOCRIT 43.2 % (42.0-54.0); HEMOGLOBIN 14.6 g/dL (13.5-17.5); IMMATURE GRANULOCYTES 0.1 % (0-5); LYMPHOCYTES 24.9 % (15-50); MCHC 33.8 g/dL (31.0-37.0); MCV 85.9 fL (80.0-100.0); MEAN PLATELET VOLUME 11.1 fL (7.4-10.4); MONOCYTES 7.7 % (2-11); NEUTROPHILS 62.6 % (40-80); PLATELET COUNT 177 10x3/uL (130-400); POTASSIUM - SERUM 4.2 mmol/L (3.5-5.1); RBC 5.03 10x6/uL (4.20-6.10); RDW 12.6 % (11.5-14.5); SODIUM 140 mmol/L (136-145); UREA NITROGEN 21 mg/dL (7-18); WBC 7.4 10x3/uL (4.8-10.8); eGFR NON AFRICAN AMERICAN 71 mL/min (90-120)
[2019-11-15 09:45] LABS: APTT 29.9 SECONDS (22.8-39.4); INR 0.98 (0.85-1.17)
[2019-11-15 09:46] LABS: D-DIMER-QUANTITATIVE 0.28 ug/mLFEU (0.20-0.54)
[2019-11-15 09:54] LABS: ALBUMIN 3.6 g/dL (3.4-5.0); ALKALINE PHOSPHATASE 68 U/L (30-120); ALT (SGPT) 19 U/L (10-68); BILIRUBIN - TOTAL 0.56 mg/dL (0.2-1.3); CREATINE KINASE 57 UL (21-232); PRO BNP 369 pg/mL (0-125)
[2019-11-15 09:56] LABS: TROPONIN-I < 0.017 ng/mL (0.000-0.060)
[2019-11-15] MEDS ORDERED: LASIX40 MG PO (10:29)
[2019-11-15 10:46] VITALS: BP 134/54; BMI 40.8
--- NOTE | 2019-11-15 11:08 | NUR ---
BLOOD SUGAR OF 118, NO COVERAGE NEEDED PER S/S.
[2019-11-15 12:36] LABS: CKMB 0.9 U/L (0.0-3.6); CREATINE KINASE 49 UL (21-232); TROPONIN-I < 0.017 ng/mL (0.000-0.060)
[2019-11-15 13:33] VITALS: BP 121/70
--- NOTE | 2019-11-15 15:22 | NUR ---
650MG OF TYLENOL GIVEN FOR PAIN LEVEL OF 5/10. PT DENIES ANY OTHER NEEDS AT THIS TIME. CALL LIGHT IN REACH, NAD NOTED, WILL CONTINUE TO MONITOR.
--- NOTE | 2019-11-15 19:30 | NUR ---
REPORT RECIEVED AND INITIAL ROUNDS COMPLETED. PT RESTING IN BED. NO DISTRESS.
[2019-11-15 20:00] VITALS: BP 172/79
[2019-11-15 20:27] LABS: CKMB 1.1 U/L (0.0-3.6); CREATINE KINASE 47 UL (21-232)
[2019-11-15 20:37] LABS: TROPONIN-I < 0.017 ng/mL (0.000-0.060)
[2019-11-16] VITALS: BP 175/68
[2019-11-16 02:52] LABS: BASOPHILS 0.5 % (0-2); EOSINOPHILS 3.8 % (0-7); HEMATOCRIT 40.6 % (42.0-54.0); HEMOGLOBIN 13.3 g/dL (13.5-17.5); IMMATURE GRANULOCYTES 0.1 % (0-5); LYMPHOCYTES 29.5 % (15-50); MCH 28.3 pg (26.0-34.0); MCHC 32.8 g/dL (31.0-37.0); MCV 86.4 fL (80.0-100.0); MEAN PLATELET VOLUME 10.7 fL (7.4-10.4); MONOCYTES 8.2 % (2-11); NEUTROPHILS 57.9 % (40-80); PLATELET COUNT 172 10x3/uL (130-400); RDW 12.7 % (11.5-14.5); WBC 7.4 10x3/uL (4.8-10.8)
[2019-11-16 03:10] LABS: ALBUMIN 3.4 g/dL (3.4-5.0); ALKALINE PHOSPHATASE 57 U/L (30-120); ALT (SGPT) 18 U/L (10-68); BILIRUBIN - TOTAL 0.63 mg/dL (0.2-1.3); CALCIUM 8.7 mg/dL (8.5-10.1); CARBON DIOXIDE 31.8 mmol/L (21.0-32.0); CHLORIDE - SERUM 106 mmol/L (98-107); CKMB 0.7 U/L (0.0-3.6); CREATINE KINASE 44 UL (21-232); CREATININE - SERUM 1.1 mg/dL (0.6-1.3); GLUCOSE 169 mg/dL (74-106); POTASSIUM - SERUM 4.1 mmol/L (3.5-5.1); PROTEIN - SERUM 6.3 g/dL (6.4-8.2); SODIUM 142 mmol/L (136-145); UREA NITROGEN 15 mg/dL (7-18); eGFR NON AFRICAN AMERICAN 71 mL/min (90-120)
[2019-11-16 03:11] LABS: CALC OSMOLALITY 287 mosm/kg (275-300); TROPONIN-I < 0.017 ng/mL (0.000-0.060)
[2019-11-16 04:00] VITALS: BP 150/79
[2019-11-16 10:04] VITALS: BP 194/69
[2019-11-16 10:45] LABS: BASOPHILS 0.5 % (0-2); EOSINOPHILS 2.7 % (0-7); HEMATOCRIT 40.1 % (42.0-54.0); HEMOGLOBIN 13.4 g/dL (13.5-17.5); IMMATURE GRANULOCYTES 0.2 % (0-5); LYMPHOCYTES 18.5 % (15-50); MCH 29.1 pg (26.0-34.0); MCHC 33.4 g/dL (31.0-37.0); MEAN PLATELET VOLUME 10.6 fL (7.4-10.4); MONOCYTES 6.4 % (2-11); NEUTROPHILS 71.7 % (40-80); PLATELET COUNT 157 10x3/uL (130-400); RBC 4.61 10x6/uL (4.20-6.10); RDW 12.7 % (11.5-14.5); WBC 6.6 10x3/uL (4.8-10.8)
[2019-11-16 11:09] LABS: ANION GAP 10.7 mmol/L (8-16); CALCIUM 8.6 mg/dL (8.5-10.1); CARBON DIOXIDE 29.4 mmol/L (21.0-32.0); CHOL - HDL RATIO 4.1 ratio (2.3-4.9); CREATININE - SERUM 1.1 mg/dL (0.6-1.3); LDL-HDL RATIO 1.9 ratio (1.5-3.5); POTASSIUM - SERUM 4.1 mmol/L (3.5-5.1)
[2019-11-16 13:48] VITALS: BP 124/82
[2019-11-16 14:31] VITALS: Ht 182.9 cm; Wt 136.4 kg
[2019-11-16 17:38] VITALS: BP 152/68
--- NOTE | 2019-11-16 19:30 | NUR ---
REPORT RECIEVED AND INITIAL ROUNDS COMPLETED. PT ALERT/ORIENTED AND RESTING IN BED. FAMILY X 2 IN ROOM. INSTRUCT ON NPO AFTER MIDNIGHT FOR AM HEART CATH. CONSENTS ARE SIGNED AND ON THE CHART. NOT CURRENTLY WEARING O2, RESPS EVEN/NONLABORED. CPOC.
[2019-11-16 20:00] VITALS: BP 152/84
[2019-11-17] VITALS: BP 119/71
--- NOTE | 2019-11-17 01:00 | NUR ---
HAS BEEN NPO SINCE MIDNIGHT. RESTING WITH NO DISTRESS. CPOC.
[2019-11-17 04:00] VITALS: BP 161/98
--- NOTE | 2019-11-17 04:25 | NUR ---
AM PREOP CATH CARE PROVIDED.
[2019-11-17 05:01] LABS: BASOPHILS 0.5 % (0-2); HEMATOCRIT 41.9 % (42.0-54.0); HEMOGLOBIN 14.1 g/dL (13.5-17.5); IMMATURE GRANULOCYTES 0.2 % (0-5); MCH 29.1 pg (26.0-34.0); MCHC 33.7 g/dL (31.0-37.0); MCV 86.6 fL (80.0-100.0); MEAN PLATELET VOLUME 10.8 fL (7.4-10.4); MONOCYTES 9.2 % (2-11); NEUTROPHILS 63.1 % (40-80); PLATELET COUNT 176 10x3/uL (130-400); RBC 4.84 10x6/uL (4.20-6.10); RDW 12.6 % (11.5-14.5); WBC 8.7 10x3/uL (4.8-10.8)
[2019-11-17 05:18] LABS: ANION GAP 10.9 mmol/L (8-16); CALCIUM 8.6 mg/dL (8.5-10.1); CREATININE - SERUM 1.1 mg/dL (0.6-1.3); POTASSIUM - SERUM 3.9 mmol/L (3.5-5.1)
--- NOTE | 2019-11-17 07:15 | NUR ---
RESTING QUIETLY AAOX4 RESP UNLABORED SKIN W/D COLOR WNL NAD NOTED
[2019-11-17 08:00] VITALS: BP 163/61
[2019-11-17 11:00] VITALS: BP 148/71
--- NOTE | 2019-11-17 18:15 | NUR ---
REVIWED DISCHARGE INSTRUCTIONS WITH PT STATES UNDERSTANDING COPY GIVEN DCD SALINE LOCK TO LFA WITH IV CATHETER INTACT SITE FREE OF REDNESS OR EDEMA DISCHARGED HOME IN STABLE CONDITION WITH ALL PERSONAL BELONGINGS LEFT UNIT VIA W/C
--- NOTE | 2019-11-18 08:51 | MORECARE ---
CASE MANAGEMENT DISCHARGE SUMMARY PATIENT: JEAN AYALA UNIT: [id number] ADM DATE: 11/16/19 AGE: 69 : 54 SEX: M ROOM/BED: D.2119 AUTHOR: COCO GARCIA PHYSICIAN: REFERRING PHYSICIAN: LELE PANCHAL MD DATE OF SERVICE: 11/18/19 Discharge Plan Patient Name: JEAN [facility]YALA [facility] [facility] 1950 Planned Disposition: Home Anticipated Discharge Date: 11/17/19 Discharge Date: 11/17/2019 Expected LOS: 1 Initial Reviewer: [id number] Initial Review Date: 11/15/2019 Generated: 11/18/19 9:50 am Coverage Notice Reviewer: [email or web address] Corby Glover Notice Issued Date-Time: 11/16/2019 16:12 Notice Type: Medicare Outpatient Observation Notice Notice Delivered To: Patient Relationship to Patient: Soldering Inspector Name: Delivery Method: HAND - Hand Delivered Iris Days: Prior Verbal Notification: Recipient Understood Notice: Yes Recipient Signature: Yes Med Rec Note Co-signed by Attending: Coverage Notice Comment: Patient Name: JEAN AYALA Page [phone] at 0851 All edits/amendments must be made on the electronic document DICTATION DATE: 11/18/19 0850 REFRIGERATION SERVICE INSPECTOR: RONALD 11/18/19 0850 RPT#: [id number] DC DATE:11/17/19 STATUS: DIS IN [facility] [address] [place] [address] END OF REPORT
== END 2019-11-17 18:15 | disposition home or self-care (01) | DRG 287 ==
LOC: D.ER 08:22 → D.M2 08:56 → OBSVTIME 09:40 → D.M2 11-16 17:24
PROVIDERS: Family Medicine; Internal Medicine Cardiovascular Disease; ADMIT Internal Medicine Nephrology; ATTEND Internal Medicine Nephrology
PROC: B2151ZZ Fluoroscopy of Left Heart using Low Osmolar Contrast (ICD-10-PCS; 2019-11-17)
PROC: 4A023N7 Measurement of Cardiac Sampling and Pressure, Left Heart, Percutaneous Approach (ICD-10-PCS; 2019-11-17)
PROC: B2111ZZ Fluoroscopy of Multiple Coronary Arteries using Low Osmolar Contrast (ICD-10-PCS; principal; 2019-11-17 08:40)
DX: R07.89 Other chest pain (principal); I25.110 Atherosclerotic heart disease of native coronary artery with unstable angina pectoris; E11.9 Type 2 diabetes mellitus without complications; I10 Essential (primary) hypertension; Z87.891 Personal history of nicotine dependence; L40.9 Psoriasis, unspecified

== ENCOUNTER → 2020-03-11 08:15 | Outpatient (CLI) | payer MEDICARE, BC ==
[2019-11-16 14:31] VITALS: BMI 40.8
[~2020-03-11 08:15] MED LIST changes: +LASIX40 MG PO
[2020-03-11 09:31] LABS: ALBUMIN 3.8 g/dL (3.4-5.0); BILIRUBIN - DIRECT 0.15 mg/dL (0.00-0.30); BILIRUBIN - INDIRECT 0.38 mg/dL (0.00-1.00); BILIRUBIN - TOTAL 0.53 mg/dL (0.2-1.3); PROTEIN - SERUM 6.8 g/dL (6.4-8.2)
== END | disposition home or self-care (01) ==
LOC: D.LAB 08:00 → D.US 08:30
PROVIDERS: ATTEND Internal Medicine Gastroenterology
DX: K76.0 Fatty (change of) liver, not elsewhere classified (principal)

== ENCOUNTER → 2021-01-05 08:32 | Outpatient (CLI) | payer MEDICARE, BC ==
[2019-11-16 14:31] VITALS: BMI 40.8
--- NOTE | ~2021-01-05 | EC ---
PATIENT:JEAN AYALA DATE OF SERVICE: 01/05/21 SEX: M MEDICAL RECORD: [id number] DATE OF : 54 LOCATION:D[facility] AGE OF PATIENT: 70 ADMISSION DATE: 01/05/21 REFERRING PHYSICIAN: INTERPRETING PHYSICIAN: AXEL LUQUE MD ECHOCARDIOGRAM REPORT ECHO CHARGES 4 ECHO COMPLETE Date: 01/05/21 CLINICAL DIAGNOSIS: CAD/ASSESS EF AND MITRAL REGURG ECHOCARDIOGRAPHIC MEASUREMENTS (adult normal given) AC root (d.<3.7cm) 3.9 cm LV Septum d (<1.2 cm> 1.7 cm Valve Excursion 2.1 cm LV Septum (systole) 1.8 cm Left Atria (s.<4.0cm> 4.1 cm LVPW d(<1.2cm) 1.9 cm RV (d.<2.3cm) 3.7 cm LVPW (sytole) 2.1 cm LV diastole(<5.6CM) 6.1 cm MV E-F(>70mm/sec) cm LV systole 4.1 cm LVOT Diameter 2.0 cm MV exc.(>10mm) 1.7 cm Est.ejection fraction (50-75%) % DOPPLER: LVIT cm/sec A 72.0 cm/sec E 66.0 cm/sec LA cm/sec RVSP 26 mmHg LVOT 92 cm/sec AOP1/2T m/s Asc. Ao 143 cm/sec RVOT 68 cm/sec RA cm/sec PA 81 cm/sec AV Gradient Peak 8.13 mmHg AV Mean 3.95 mmHg AV Area 2.4 cm MV Gradient Peak 3.35 mmHg MV Mean 1.17 mmHg MV Area cm COMMENTS: Sweet Potato Disintegrator: 2 GABRIELLE LOPEZ Ware Finisher: 3 Dr. Han TAPE# PACS Pericardial Effusion N DATE OF SERVICE: Adequate 2D, color-flow imaging, spectral Doppler, and M-Mode FINDINGS: LVH is present. LV internal dimensions are dilated. Wall motion is normal. EF is greater than or equal to 55%. Aortic valve is tricuspid. No evidence of stenosis by Doppler interrogation. Left atrium is upper limits of normal to mildly dilated at 4.1 cm. Mitral valve shows no prolapse. Trace MR. Right side is grossly normal. Mild TR. ECHOCARDIOGRAM REPORT [id number] JEAN AYALA TRANSINT:[id number] Voice Confirmation ID: [id number] DOCUMENT ID: [id number] AXEL LUQUE MD CC: [id number] DICTATION DATE: 01/06/21 1414 CARDIOPULMONARY SUPERVISOR: 01/06/21 1518 DEP CLI 01/05/21 [place] [id number] [place] [id number]
== END | disposition home or self-care (01) ==
LOC: D.HCCECHO 08:32
PROVIDERS: ATTEND Internal Medicine Interventional Cardiology
DX: I25.10 Atherosclerotic heart disease of native coronary artery without angina pectoris (principal)